=== PATIENT | male | born 1985 | race Caucasian/White ===

== ENCOUNTER 2020-09-21 07:54 | Day surgery (SDC) | payer BC ==
--- NOTE | 2020-09-20 14:07 | RAD REPORT ---
EXAM DESCRIPTION: RAD - Chest Pa And Lat (2 Views) - 09/20/2020 1:58 pm CLINICAL HISTORY: preop Chest pain. COMPARISON: CHEST SINGLE VIEW dated 11/16/2010 FINDINGS: The lungs are clear. The heart is mildly enlarged in size. No displaced fractures. IMPRESSION: No acute or concerning finding suspected.
[2020-09-20 14:35] LABS: Basophils % 0.7 % (0-1.3); Hematocrit 43.1 % (39.6-49.0); Lymphocytes % 22.7 % (15.3-44.8); MPV 9.3 fL (7.6-11.3); RBC Red Blood Cell Count 4.97 M/uL (4.33-5.43)
[2020-09-21] MEDS: Ringers Lactate 1,000 ML IV ONE (07:54)
--- OUTSIDE RECORDS SUMMARY | 2020-09-21 08:01 | XMS REPORT | Continuity of Care Document ---
:1985 Author Organization [facility] t Address [address] [place] [address] Dr. Bonner [address] [place] [id number] Care Team Providers Name Role Phone Doctor Unassigned, Name Attending Clinician Unavailable Lab, Fam Pob I Attending Clinician Unavailable Problems This patient has no known problems. Allergies, Adverse Reactions, Alerts This patient has no known allergies or adverse reactions. Medications This patient has no known medications. Procedures This patient has no known procedures. Encounters Start End Encounter Admission Attending Care Care Encounter Source Date/Time Date/Time Type Type Clinicians Facility Department ID 2020-05-25 2020-05-25 Patient Doctor NICK [id number] 00:00:00 00:00:00 Secure Msg Unassigned, STORMY [id number] [place] [facility] [id number] 2020-05-24 2020-05-24 Laboratory Lab, [facility] [id number] 16:39:30 16:45:57 Only Fam Pob I [facility] [id number] [place] [id number] [facility] [phone] [place] [address] [address] Results This patient has no known results.
[2020-09-21] MEDS ORDERED: dexAMETHasone 10 MG/ML VIAL ONE (08:21)
[2020-09-21] MEDS ORDERED: propofoL 200 MG/20 ML VIAL IV ONE (08:21)
[2020-09-21] MEDS ORDERED: FENTANYL CITR 100 MCG/2 ML ONE (08:21)
[2020-09-21] MEDS ORDERED: MIDAZOLAM HCL 2 MG/2 ML INJ ONE (08:22)
[2020-09-21] MEDS ORDERED: ONDANSETRON 4 MG/2 ML VIAL ONE ×2 (08:22→11:26)
[2020-09-21] MEDS ORDERED: LIDOCAINE 2% MPF 5 ML VIAL ONE (08:22)
[2020-09-21] MEDS ORDERED: KETOROLAC 30 MG/ML INJ ONE (08:22)
[2020-09-21] MEDS ORDERED: CEFAZOLIN/SWI 1gm 1 GM/10 ML SYR ONE (08:24)
[2020-09-21] MEDS ORDERED: ROCURONIUM 50 MG/5 ML VIAL IV ONE (08:25)
[2020-09-21] MEDS ORDERED: FENTANYL CITR 250 MCG/5 ML ONE (09:39)
[2020-09-21] MEDS ORDERED: VECURONIUM 10 MG/VIAL IV ONE (09:39)
[2020-09-21] MEDS ORDERED: NS 0.9% VIAL 10 ML ONE ×2 (09:39→10:21)
[2020-09-21] MEDS ORDERED: ALBUTEROL INHALER 60 PUFF/8 GM IH ONE (10:21)
[2020-09-21] MEDS ORDERED: Phenylephrine HCl 10 MG/ML 1 ML VIAL ONE (10:21)
[2020-09-21] MEDS ORDERED: GLYCOPYRROLATE 0.2 MG/ML SYR ONE (10:30)
[2020-09-21] MEDS ORDERED: NEOSTIGMINE 1 MG/ML -5 ML ONE (10:31)
[2020-09-21] MEDS: HYDROMORPHONE HCL 2 MG/ML inj ONE ×4 (10:43→11:05)
[2020-09-21 11:09] VITALS: O2SAT 94
--- NOTE | 2020-09-21 11:31 | OP ---
Date of Procedure: 09/21/2020 Surgeon: Cody See MD [employer] Consultant: MARY LOU Toscano. Preoperative Diagnosis: Incisional hernia. Postoperative Diagnosis: Incarcerated incisional hernia. Procedure Performed: Laparoscopic repair of incarcerated incisional hernia. Estimated Blood Loss: Minimal. Specimen: Hernia sac and contents. Findings: As above. Anesthesia: General. Complications: None. Disposition: The patient tolerated the procedure in stable condition and taken to Recovery in good g eneral condition. Procedure In Detail: The patient was brought to the OR and placed in supine position. General anest hesia begun. The patient was prepped and draped in the usual sterile fashion. Marcaine 0.5% was inf iltrated locally. A 15-blade was used to make a 1 cm left upper quadrant incision. Subcutaneous tis jessica was divided. Fascia was identified and divided. #1 Vicryl stay suture was placed. Peritoneal c avity was entered with sharp and blunt dissection. 12 mm trocar was placed into the peritoneal cavit y under direct vision. Pneumoperitoneum was established and 12 mm trocar was placed into the periton eal cavity under direct vision and then pneumoperitoneum was established and then 5 mm trocar was nilsa giuliana in the left lower quadrant. Laparoscopy revealed incarcerated omentum and incisional hernia in t he right mid abdomen where a previous incision was made when the patient had a bowel surgery for obst ruction as a child. There was omentum that was stuck in the hernia which had to be dissected with Li Marie and there was surrounding adhesions as well which was taken down with LigaSure until all of th e omentum was reduced and then a 4 cm incision was made over the hernia sac itself. Subcutaneous tis jessica was divided. Hernia sac and contents were identified all the way down to the peritoneum, excised and there was omentum still in there and that was sent to pathology and then, #1 PDS was used to lidia se the fascial defect. Subcutaneous wounds were irrigated and then bleeding was controlled with caut lottie and then pneumoperitoneum reestablished and then an oval size large Bard balloon mesh was placed into the peritoneal cavity and then standard technique was utilized and the mesh was deployed and sec ured with AbsorbaTack. Complete coverage of the hernia defect as well as incisional hernia was compl etely made with at least 3-4 cm borders on every site. Subsequently, there was no evidence of bleedin g or bowel injury appreciated. Complete coverage of the hernia defect was accomplished. All trocars were removed under direct vision. Stay sutures were tied to each other to approximate the fascial d efect. Subcutaneous wounds were irrigated. Bleeding was controlled with cautery. A 3-0 chromic was used to approximate subcutaneous tissues. Staple was used to close skin. Sterile dressing was appl ied. The patient was awakened and taken to Recovery in good general condition. discharge the patient with a surgeon home when stable. Discharge Note: The patient will go to Day Surgery and home when stable. Disposition: Home. Condition: Stable. Discharge Instructions: Resume home meds and diet. Activity as tolerated. Remove outer dressing in 2 days. Shower. Keep wound clean and dry. Abdominal binder as ordered. Incentive spirometry q.1 hour while awake and Tylenol No. 3 one tablet p.o. q.4 p.r.n. pain. Follow up in my office and call for appointment. HALIE/BETTINA Voice ID: [id number] Report ID: [id number]
[2020-09-21 11:40] VITALS: BP 120/78; TEMP 97.3
[2020-09-21] MEDS ORDERED: HYDROCODONE/APAP 7.5/325 MG TAB ONE (11:58)
== END 2020-09-21 12:14 | disposition home or self-care (01) ==
LOC: OR 07:54
PROVIDERS: ATTEND Surgery
PROC: 0WUF4JZ Supplement Abdominal Wall with Synthetic Substitute, Percutaneous Endoscopic Approach (ICD-10-PCS; principal; 2020-09-21 09:00)
DX: K43.0 Incisional hernia with obstruction, without gangrene (principal); I10 Essential (primary) hypertension; G47.30 Sleep apnea, unspecified; E66.9 Obesity, unspecified; Z20.828 Contact with and (suspected) exposure to other viral communicable diseases
CPT/HCPCS: 93005; 85025; 80048; 36415; 88302; 71046; 49655; U0002; J2704; J2370; J2250; J1170; J3010; J1100; J2710; J0690; J7120; J2405 ×2